=== PATIENT | female | born 1970 | race Caucasian/White ===

== ENCOUNTER → 2018-05-25 | Outpatient (CLI) | payer BC ==
[~2018-05-25] MED LIST: IOHEXOL 350 MG/ML 100ML IJ ONE
[2018-05-25 11:25] VITALS: BP 129/76
--- NOTE | 2018-05-25 11:25 | NUR ---
CT CHEST FOR PALPITATIONS. IV PLACED TO LEFT AC, [address] SCAN DONE AND PT TOLERATED WELL. FOLLOWUP VITALS WNL. IV SITE DCD AND REMAINS BENIGN. Discharge Instructions See e-MAR for any mediations given with this visit. Patient education given on disease process. Patient verbalized understanding. Previous labs reviewed. Patient discharged in stable condition with after care instructions
[2018-05-25 12:03] VITALS: BP 120/80
== END | disposition home or self-care (01) ==
LOC: Rad HDHVI 10:49
PROVIDERS: ATTEND Internal Medicine Cardiovascular Disease
DX: R07.9 Chest pain, unspecified (principal)
CPT/HCPCS: 71260; 82565; G0463; Q9967

== ENCOUNTER → 2018-05-30 | Outpatient (CLI) | payer BC ==
[~2018-05-30] VITALS: Ht 162.6 cm; Wt 82.6 kg
== END | disposition home or self-care (01) ==
LOC: Rad HDHVI 09:25
PROVIDERS: ATTEND Internal Medicine Cardiovascular Disease
DX: J44.9 Chronic obstructive pulmonary disease, unspecified (principal); E78.00 Pure hypercholesterolemia, unspecified; R07.89 Other chest pain; R00.2 Palpitations
CPT/HCPCS: 78452; 93017; 96374; A9500

== ENCOUNTER → 2018-05-31 | Outpatient (CLI) | payer BC | END | disposition home or self-care (01) | LOC: Rad HDHVI 13:59 | PROVIDERS: ATTEND Internal Medicine Cardiovascular Disease | DX: J44.9 Chronic obstructive pulmonary disease, unspecified (principal); E04.1 Nontoxic single thyroid nodule | CPT/HCPCS: 93306 ==

== ENCOUNTER 2019-02-14 23:07 | Emergency (ER) | payer BC ==
[~2019-02-14] VITALS: Ht 162.6 cm; Wt 83.5 kg
[2019-02-15 00:02] VITALS: BP 151/97
== END 2019-02-15 00:09 | disposition home or self-care (01) ==
LOC: ER 23:10
DX: S10.15XA Superficial foreign body of throat, initial encounter (principal); X58.XXXA Exposure to other specified factors, initial encounter; Y93.9 Activity, unspecified; Y99.8 Other external cause status; Y92.89 Other specified places as the place of occurrence of the external cause
CPT/HCPCS: 42809

== ENCOUNTER → 2021-05-07 | Outpatient (CLI) | payer BC | END | disposition home or self-care (01) | LOC: Rad HDHVI 08:35 | PROVIDERS: ATTEND Internal Medicine | DX: R06.02 Shortness of breath (principal) | CPT/HCPCS: 71046; 93306 ==